=== PATIENT | female | born 1945 | race Caucasian/White ===

== ENCOUNTER 2018-02-06 13:31 | Outpatient (REF) | payer MEDICARE, SELFPAY ==
[2018-02-06 21:52] LABS: Anion Gap 11.5 mmol/L (3-11); BUN 19 mg/dL (7-18); CO2 28.5 mmol/L (21.0-32.0); Calcium 9.2 mg/dL (8.5-10.1); Chloride 100 mmol/L (98-107); Cholesterol 223 mg/dL (50-200); Glucose 88 mg/dL (70-100); HDL Cholesterol 90 mg/dL (40-60); LDL CHOLESTEROL 117 mg/dL (<100); Potassium 3.8 mmol/L (3.5-5.1); Sodium 140 mmol/L (136-145); Triglyceride 54 mg/dL (30-150); Vitamin B12 > 1000 pg/mL (193-986)
== END 2018-02-06 13:51 ==
LOC: NCHCN 13:31
PROVIDERS: PCP Nurse Practitioner Family; Visit Provider Nurse Practitioner Family
DX: R53.83 Other fatigue (principal); E78.5 Hyperlipidemia, unspecified; Z80.3 Family history of malignant neoplasm of breast; I10 Essential (primary) hypertension; J30.2 Other seasonal allergic rhinitis; E66.9 Obesity, unspecified
CPT/HCPCS: 80048; 80061; 83721; 82607; 84443

== ENCOUNTER 2018-05-01 00:47 | Outpatient (CLI) | payer MEDICARE, SELFPAY ==
--- NOTE | 2018-05-01 10:00 | DI.MAMMO_ITS ---
SYMPTOM/DIAGNOSIS: SCREENING, Z12.31, FAM HX BREAST CA Z80.3, PREVENTATIVE CARE Z00.00 MAMMOGRAMS: Mammograms were interpreted according to the usual protocol including computer analysis with CAD system, tomosynthesis and C view imaging. Comparison with the prior examinations. Breast density category A. No masses or microcalcifications are seen. There is nothing to suggest malignancy. IMPRESSION: Negative mammogram. Category 1 - A. Routine screening is recommended. SA ASSESSMENT OF FINDINGS: Negative. Category 1. Patient will receive a letter notifying them of these results. BI-RAD category A. The breasts are almost entirely fatty.
== END 2018-05-01 01:07 ==
PROVIDERS: PCP Nurse Practitioner Family; Visit Provider Nurse Practitioner Family
DX: Z12.31 Encounter for screening mammogram for malignant neoplasm of breast (principal); Z80.3 Family history of malignant neoplasm of breast
CPT/HCPCS: 77063; 77067

== ENCOUNTER 2018-05-08 13:58 | Outpatient (CLI) | payer MEDICARE, SELFPAY ==
--- NOTE | 2018-05-08 13:38 | DI.RAD_ITS ---
SYMPTOM/DIAGNOSIS: F/U RT TKA RIGHT KNEE: Comparison is made with 20 May 2017 There has been no change in the appearance of the total knee prosthesis or surrounding bone.
== END 2018-05-08 14:18 ==
PROVIDERS: PCP Nurse Practitioner Family; Referring Provider Nurse Practitioner Family; Visit Provider Student in an Organized Health Care Education/Training Program
DX: Z96.651 Presence of right artificial knee joint (principal); Z47.1 Aftercare following joint replacement surgery; M17.11 Unilateral primary osteoarthritis, right knee
CPT/HCPCS: 99213; 73560

== ENCOUNTER 2018-08-15 10:16 | Outpatient (REF) | payer MEDICARE, SELFPAY ==
[2018-08-15 13:38] LABS: Cholesterol 280 mg/dL (50-200); HDL Cholesterol 92 mg/dL (40-60); LDL CHOLESTEROL 166 mg/dL (<100); Triglyceride 67 mg/dL (30-150)
[2018-08-16 10:19] LABS: Hepatitis C Ab w Rflx HCV PCR Negative (NEGAT)
== END 2018-08-15 10:36 ==
LOC: NCHCN 10:16
PROVIDERS: PCP Nurse Practitioner Family; Visit Provider Nurse Practitioner Family
DX: E78.5 Hyperlipidemia, unspecified (principal); R53.83 Other fatigue; I10 Essential (primary) hypertension; E66.3 Overweight; Z11.59 Encounter for screening for other viral diseases
CPT/HCPCS: 80061; 83721; 86803

== ENCOUNTER 2019-02-13 11:26 | Outpatient (REF) | payer MEDICARE, SELFPAY ==
[2019-02-13 21:48] LABS: ALT 30 U/L (14-59); AST 14 U/L (15-37); Albumin 3.9 g/dL (3.4-5.0); Alkaline Phosphatase 89 U/L (46-116); Anion Gap 10.1 mmol/L (3-11); BUN 18 mg/dL (7-18); Bilirubin, Total 0.4 mg/dL (0.2-1.0); CO2 27.9 mmol/L (21.0-32.0); CREATININE 0.79 mg/dL (0.55-1.02); Calcium 9.7 mg/dL (8.5-10.1); Calculated LDL 176 mg/dL; Chloride 103 mmol/L (98-107); Cholesterol 280 mg/dL (50-200); Glucose 87 mg/dL (70-100); HDL Cholesterol 92 mg/dL (40-60); Sodium 141 mmol/L (136-145); Total Protein 7.5 g/dL (6.4-8.2); Triglyceride 61 mg/dL (30-150)
== END 2019-02-13 11:46 ==
LOC: NCHCN 11:26
PROVIDERS: PCP Nurse Practitioner Family; Visit Provider Nurse Practitioner Family
DX: I10 Essential (primary) hypertension (principal); E78.5 Hyperlipidemia, unspecified; R53.83 Other fatigue; E66.9 Obesity, unspecified
CPT/HCPCS: 80053; 80061

== ENCOUNTER 2019-05-08 01:12 | Outpatient (CLI) | payer MEDICARE, SELFPAY ==
--- NOTE | 2019-05-08 08:42 | DI.MAMMO_ITS ---
EXAM: MAMMO SCREENING CLINICAL HISTORY: SCREENING, Z12.31, FAMILY H/O BREAST CA, Z80.3 TECHNIQUE: Mammograms were interpreted according to the usual protocol including computer analysis w [employer] CAD system, tomosynthesis and C-view imaging. COMPARISON: [id number] FINDINGS: The breasts are composed of almost entirely fatty tissue, breast density category A. There are no pedraza spicious masses or suspicious microcalcifications. There has been no significant interval change when compared with the prior examinations. IMPRESSION: Category 1, breast density category A. BI-RADS Cat 1 - Negative Breast Density - Category A - Almost entirely fatty
== END 2019-05-08 01:32 ==
PROVIDERS: PCP Nurse Practitioner Family; Visit Provider Nurse Practitioner Family
DX: Z12.31 Encounter for screening mammogram for malignant neoplasm of breast (principal); Z80.3 Family history of malignant neoplasm of breast
CPT/HCPCS: 77063; 77067

== ENCOUNTER 2019-07-02 14:47 | Outpatient (CLI) | payer MEDICARE, SELFPAY ==
--- NOTE | 2019-07-02 13:49 | DI.RAD_ITS ---
EXAM: XR STANDING ALIGNMENT INDICATION: left knee pain. COMPARISON: BONE LENGTH from 05/20/2017 TECHNIQUE: 2D digital imaging was performed. FINDINGS: The patient has a right total knee replacement. In the left knee there is moderate narrowing of the medial femoral tibial joint space. There is periarticular spurring seen medially and laterally in th e left knee. The right lower extremity measures 83.3 cm. The left lower extremity measures 0.4 cm.
--- NOTE | 2019-07-02 13:49 | DI.RAD_ITS ---
EXAM: XR KNEE LT 2V AP,LAT INDICATION: left knee pain. COMPARISON: XR knee RT 2V AP,lat from 05/08/2018 TECHNIQUE: 2D digital imaging was performed. FINDINGS: There are mild degenerative changes of the left knee predominantly involving the patellofemoral joint . The bones are normally mineralized and intact. The soft tissues are unremarkable. IMPRESSION: Mild degenerative changes of the left knee.
== END 2019-07-02 15:07 ==
PROVIDERS: PCP Nurse Practitioner Family; Referring Provider Nurse Practitioner Family; Visit Provider Student in an Organized Health Care Education/Training Program
DX: M25.562 Pain in left knee (principal); M17.12 Unilateral primary osteoarthritis, left knee; Z96.651 Presence of right artificial knee joint; M21.70 Unequal limb length (acquired), unspecified site
CPT/HCPCS: 99213; 73560; 77073

== ENCOUNTER 2019-08-13 13:29 | Outpatient (CLI) | payer MEDICARE, SELFPAY ==
[2019-08-13 13:55] LABS: HCT 41.7 % (36.0-46.0); HGB 13.4 g/dL (12.0-15.5); Mean Corp. HGB Concentration 32.1 g/dL (32.0-36.0); Mean Corpuscular Hemoglobin 30.5 pg (27.0-33.0); Mean Platelet Volume 10.6 fL (8.0-11.0); Platelet Count 305 x1000/uL (130-400); RBC 4.39 m/cumm (4.00-5.20); RBC Distribution Width 14.4 % (11.7-14.6); White Blood Cell Count 6.09 k/cumm (4.4-10.8)
[2019-08-13 14:56] LABS: Anion Gap 10.1 mmol/L (3-11); BUN 19 mg/dL (7-18); CO2 29.9 mmol/L (21.0-32.0); CREATININE 0.84 mg/dL (0.55-1.02); Calcium 9.3 mg/dL (8.5-10.1); Chloride 105 mmol/L (98-107); Glucose 92 mg/dL (74-106); Potassium 3.6 mmol/L (3.5-5.1); Sodium 145 mmol/L (136-145)
== END 2019-08-13 13:49 ==
PROVIDERS: PCP Nurse Practitioner Family; Visit Provider Student in an Organized Health Care Education/Training Program
DX: M25.562 Pain in left knee (principal); M17.12 Unilateral primary osteoarthritis, left knee; Z01.818 Encounter for other preprocedural examination; Z01.812 Encounter for preprocedural laboratory examination
CPT/HCPCS: 36415; 80048; 85027

== ENCOUNTER 2019-08-14 06:02 | Observation (INO) | payer MEDICARE, SELFPAY ==
--- NOTE | 2019-08-13 17:45 | PDOC.ANES ---
Date of service: 08/13/19 Time of Service: 17:46 Anesthesia Note Report Anesthesia Note: Called to speak with Joycelyn in regards to possibly rescheduling her elective surgery. I explained that she is in a higher risk group if she was to contract BRET-CoV-2/COVID 19. I explained that it has been recommended for higher risk groups to remain at home to minimize exposure to the virus. She understands the risk and would like to proceed as scheduled understanding that her overall risk of exposure is unknown.
[2019-08-14] VITALS (12 sets, daily range): BP systolic 87–129; BP diastolic 42–81; PULSE 60–85; RESP 10–22; TEMP 36–36.7; O2SAT 97–100
[2019-08-14] MEDS: Celecoxib 200 MG CAP 400 MG PO (06:53)
[2019-08-14] MEDS: Lactated Ringers 1,000 ML 80 ML IV ×2 (06:53→11:47)
[2019-08-14] MEDS: Gabapentin 300 MG CAP PO (06:54)
[2019-08-14] MEDS: Acetaminophen 500 MG TAB 1000 MG PO ×2 (06:58→13:42)
[2019-08-14] MEDS: ceFAZolin 2 GM/50 ML BAG IVPB (08:12)
[2019-08-14] MEDS: Normal Saline 20 ML VIAL (08:48)
[2019-08-14] MEDS: Ketorolac 30 MG/ML VIAL (08:48)
[2019-08-14] MEDS: Bupivacaine 0.5% Pres-Free 30 ML VIAL (08:48)
[2019-08-14] MEDS: Bupivacaine 0.25% Pres-Free 30 ML VIAL (08:48)
[2019-08-14] MEDS: ceFAZolin 1 GM/50 ML BAG IVPB (13:42)
--- NOTE | 2019-08-14 13:45 | IN_ITS ---
Date of service: 08/14/19 Time of Service: 13:45 PT Notes Visit Reasons: LEFT KNEE DJD Physical Therapy Inpatient Initial Evaluation Date: 08/14/2019 Jaret Referring Doctor: PT Orders: PT CONSULT: Status post Ortho surgery. Status post left TKA. Like ly same-day discharge. Precautions: Fall. Standard. WBAT on the left LE. Patient Profile/Admitting Diagnosis: Patient is a 73-year-old female with primary osteoarthritis of left knee status post left total knee arthroplasty on postoperative day 0. PMHX: Medical History HTN (hypertension) (Chronic) Primary osteoarthritis of left knee (Acute) Surgical History History of total right knee replacement (TKR) (Inactive) 05/03/2017 Hx of colonoscopy (Chronic) Social History/Home Situation: Patient lives with Silviano in a private home in [place] with a ramp to enter the house. 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 They also have another person who boards at their house and is able to help with provision of care for patient's for meals and medical certification specialist. Patient is independent with all mobility ADL performance using no assistive ambulatory device prior to surgery. Equipment Owned/DME: 4 wheeled walker, front wheeled walker Subjective: Patient denies pain on the left knee at rest but states that she can feel her left knee with ambulation activity. She hopes to go home today if medically cleared to do so. She denies any headache, chest pain, and dizziness throughout mobility performance. She states that she has been providing caregiving duties for the past 3 years for her who has been handicapped. Objective: General Observation: Patient resting in bed. Infante catheter in place. TEDS on the right leg. IV in the left UE. Mental Status: Alert and oriented x4 Pain: 0/10 ROM: Right Upper Extremity: Shoulder Flexion WFL. Shoulder abduction WFL. Elbow flexion WFL. Wrist flexion WFL. Opening and closing of hand WFL. Left Upper Extremity: Shoulder Flexion WFL. Shoulder abduction WFL. Elbow flexion WFL. Wrist flexion WFL. Opening and closing of hand WFL. Right Lower Extremity: Hip flexion WFL. Hip abduction WFL. Knee flexion WFL. Ankle dorsiflexion WFL. Ankle plantarflexion WFL. Left Lower Extremity: Hip flexion WFL. Hip abduction WFL. Knee flexion -18 to 15 degrees. Knee extension -18 degrees. Ankle dorsiflexion WFL. Ankle plantarflexion WFL. Strength: Right Upper Extremity: Shoulder flexors 5/5. Shoulder abductors 5/5. Elbow flexors 5/5. Elbow extensors 5/5. Recreation Engineer strong. Left Upper Extremity: Shoulder flexors 5/5. Shoulder abductors 5/5. Elbow flexors 5/5. Elbow extensors 5/5. Recreation Engineer strong. Right Lower Extremity: Hip flexors 5/5. Hip abductors 5/5. Knee flexors 5/5. Knee extensors 5/5. Ankle dorsiflexors 5/5. Ankle plantarflexors 5/5. Left Lower Extremity: Hip flexors 5/5. Hip abductors 5/5. Knee flexors 3-/5. Knee extensors 3-/5. Ankle dorsiflexors 5/5. Ankle plantarflexors 5/5. Sensation: Intact as to pain and pressure on bilateral lower extremities. Bed Mobility/Transfers: Rolling independent Supine to sit independent Sit to supine independent Sit to stand supervision Stand to sit supervision Bed to chair SBA Chair to bed SBA Gait: Patient tolerated level surface ambulation of 300 feet using the front wheeled walker with SBA and IV pole management of PT and wheelchair follow of nurse Sinha. Patient did not complain of increased pain on the left knee. Reciprocal step through gait pattern. Balance: Static Sitting: Normal Dynamic Sitting: Normal Static Standing: Good Dynamic Standing: Fair Special Tests: Mobility Limitations Standardized Measure [facility] 6 clicks Basic Mobility Inpatient Short Form: Raw Score: 23 CMS Score: 11% deficit Informed Consent/Education: Patient instructed in purpose of PT consult and plan of care. Assessment: Impaired mobility performance requiring use of assistive ambulatory device, limited range of motion on the left knee, and impairment in balance resulting from postoperative status. Patient is a 73-year-old female with primary osteoarthritis of left knee status post left total knee arthroplasty on postoperative day 0. Patient presents with clinical signs and symptoms consistent with current/admitting diagnoses that have resulted to mobility limitations, gait instability, generalized weakness, and impairment of motor control as demonstrated by the following impairment level findings: 1. Decreased strength to left knee major muscle groups 2. Impaired standing balance 3. Impaired activity tolerance 4. Limitation of joint range of motion in left knee Impairments are contributing to the following functional limitations: 1. Inability to safely ambulate without assistive device and physical assistance 2. Increase completion time for mobility ADL performance 3. Increased fall risk Patient is assessed as a 68979 moderate complexity based on the following: History: 73-year-old female with impairment level findings, functional limitations, and [place] AM PAC deficit score of 11% Examination: Demonstrable impairment in strength, balance, and range of motion with underlying impairments and functional limitations as documented above Presentation: Stable Decision Makin moderate complexity Goals: N/A. Patient is evaluation only. Plan of Care/Treatment Plan: N/A. Patient is evaluation only. DISCHARGE RECOMMENDATIONS: May benefit from skilled physical therapy services according to orthopedic surgeon's timeline recommendations. Patient will be educated and trained on home exercise program per TKA exercise protocol in preparation for outpatient physical therapy services. TREATMENT CODE/TIME: 06879 ? 32' beginning at 13:45 PM. Thank you very much for this referral. Andreia Gillespie PT, DPT, CLT [facility] [place], [place]
--- NOTE | 2019-08-14 14:11 | ROE_ITS ---
Date of service: 08/14/19 Time of Service: 10:11 Operative Note Operative Note DATE OF PROCEDURE: 08/14/19 PRE-OP DIAGNOSIS: Left Knee Osteoarthritis POST-OP DIAGNOSIS: same PROCEDURE: Left Total Knee Replacement SURGEON: Chinedu Raygoza SLIVER MACHINE OPERATOR: Valeria Rice ANESTHESIA: regional and spinal ESTIMATED BLOOD LOSS: 150 PATHOLOGY: none sent TOURNIQUET TIME: 0 COMPLICATIONS: None Patient was transported to: PACU Patient's condition: stable Implants: 1. Depuy Attune Posterior Stabilized Femoral Component, Size 5 narrow 2. Depuy Attune Fixed Platform Tibial Component, Size 4 3. Depuy Attune 5x6 Fixed, Stabilized Poly 4. Depuy Attune Patellar Component, Size 35mm Indications: I have seen Joycelyn in clinic for symptoms of left knee arthritis, confirmed with radiographic findings. She has exhausted nonoperative methods and was having significant limitations in daily function and desired better function and less pain. I discussed the technical details of a knee replacement. I explained the risks of the procedure to include, but not limited to, bleeding, infection, pain, stiffness, fracture, damage to nerves and vessels, damage to muscles and tendons, loosening, need for repeat procedure, blood clot and cardiopulmonary demise. Despite these risks, Joycelyn elected to proceed. Findings: There was significant signs of arthritis throughout the knee. Procedure Description: Joycelyn was greeted in the preoperative holding area where the correct side was identified and marked. The consent was reviewed with the patient and signed. The history and physical was updated. All questions were answered. Preoperative mediacations were administered: Acetaminophen 1000mg, Celebrex 400mg, and Gabapentin 300mg. An adductor canal block was then administered by the anesthesia team in the PACU. Joycelyn was taken back to the operating room. A spinal anesthestic was then administered. The patient was placed into the supine position on the operating room table. A nonsterile tourniquet was placed high onto the leg but only used for cementing. Posts were placed for positioning during the procedure. All bony prominences were well padded. Prophylactic antibiotics in the form of Cefazolin were administered. 1g of Tranxemic Acid was given intravenously within 30 minutes of incision. The left leg was then prepped with Chloraprep and draped in a standard fashion with impervious stockinette and extremity drape. A second prep with Chloraprep was performed prior to placing Ioband. A timeout to confirm correct identity, side and site, procedure, allergies, anesthesia, and medical concerns was performed. With the knee in some flexion, a midline incision was made overlying the knee. Full thickness skin flaps were raised once the extensor mechanism was encountere d. These were raised medially and laterally. Any bleeding was controlled with electrocautery. Once the extensor mechanism was fully exposed, a medial parapatellar arthrotomy was performed in a flexed position. All bleeding from the arthrotomy and the geniculate arteries was coagulated. A medial subperiosteal peel was performed with electrocautery to the midcoronal plane. The fat pad was removed while keeping the patellar tendon protected. The anterior distal femur synovium was removed for later visualization. The ACL and PCL were resected and the anterior horn of the lateral meniscus was transected. The knee was then flexed with the patella everted. Large osteophytes from the femur were removed. Using a step drill, and based on preoperative templating, the femoral canal was entered. This was done with a step drill without any difficulty. The intramedullary distal femoral cut guide was inserted, set to a 5 degree valgus cut and 9mm cut thickness. The distal femoral cut guide was then held in position and pinned. With the soft tissues protected, the distal cut was performed. This was passed over a few times to ensure a planar cut. I then turned attention to the tibia. The extramedullary guide was placed onto the leg. The distal aspect was slid medial to adjust for position of center of ankle and stay in line with shaft of the tibia. Approximately 3-5 degrees of posterior slope was kept in the proximal cutting guide. The center of the guide was aligned with the PCL. The stylus was used to assess cut thickness. The medial side, most involved side, w as set for a 3mm cut. This was then held in position and pinned into place with 2 additional pins and a cross pin for stability. The medial and lateral collateral ligaments were protected and the cut was performed. With this completed, it was assessed and noted to be of appropriate dimensions. The guide was removed. A spacer block was inserted and the knee was brought into extension. The 6mm spacer block provided full extension, without hyperextension and with stability of both the medial and lateral collateral ligaments was assessed. The pins from the femur and the tibia were then removed. The distal femur was then sized. The anterior stylus was placed onto the lateral ridge of the anterior femur. This indicated a size 5 femur. The external rotation of the guide was adjusted to 3 degrees to match the epicondylar axis, perpendicular to [place]?s line. The 4-in-1 cutting guide was the placed. The posterior medial femur cut was evaluated and appeared of good thickness. The spacer block was inserted underneath the cutting guide and stability was confirmed in 90 degrees of flexion. An hannah wing was used to confirm appropriate position of the anterior cut to avoid notching. This cutting guide was ensured to be flush on the cut surface and then pinned into place with headed pins. While protecting the soft tissues, quad tendon, and collateral ligaments, the anterior and posterior cuts were performed with a saw. The central two pins were removed and the posterior and anterior chamfers were cut next. The notch-cutting guide was placed. This was pinned to lateralize the femoral component as much as possible while keeping it flush on the cut surface. This was then pinned into position. A reciprocating saw was used to make the notch cut. A rasp smoothed the cut surfaces. A trial posterior stabilized femoral component was then inserted, impacted down to the cut surfaces, and the lug holes were drilled. A provisional trial tibial component was placed and the knee was brought through range of motion. There was noted to be excellent extension and flexion. There was no significant instability. The patella was tracking without thumbs. The tibial cut surface was fully exposed. The medial and lateral menisci were removed. The tibia was then sized as a 4. The tibia had been previously marked during trialing to correspond to the center of the tibial component to help with rotation. The trial was aligned to this fede, approximately rotated to the medial 1/3rd of the tibial tubercle. The trial was pinned into place. The tibia was prepared with a reamer and a keel punch. The knee was then brought into extension and the patella was measured as 25mm. Using the patellar clamp and cut guide, this was resected to a flat surface with at least 13mm of thickness remaining. The size 35 patella fit the best. This was oriented and then clamped into position. The lugs were drilled. The trial components were removed. The final components, except for the polyethylene were opened on the back table. The periosteal and capsular tissues, especially posteriorly, around the knee were then systematically injected with a periarticular cocktail consisting of 50cc 0.25% Marcaine, 30mg Ketorolac, 20cc of Exparal and 50cc of injectable saline. The tourniquet was then inflated to 275mmHg. The knee was thoroughly irrigated with a pulse lavage and dried. On the back table, with the implants opened, the cement was mixed. 2 batches of antibiotic laden cement were prepared with vacuum assistance. After the cement was ready it was placed on to the back side of the tibial component. A small amount was placed onto the posterior flange of the femur. Cement was manual pressurized and impregnated into the cut surface of the tibia. The tibial component was then inserted into the cut surface and impacted into position. Excess cement was removed and the component was reimpacted. Again, excess cement was removed and our attention was then turned to the femur. The femoral cut surface was once again dried and cement was manually impacted into the cut surface. The femoral component was lined with the lug holes and impacted. Ex cess cement was removed. It was ensured to be down against the cut surface. The trial polyethylene was then inserted and the leg was brought out into full extension for the duration of the cement curing process, approximately 15min. Cement was lastly manually impacted into the cut surface of the patella and the patellar button was clamped into position and held. During this process attention was turned to the gutters of the knee and for all interfaces for any excess cement. While the cement was hardening, the knee was irrigated with Irrisept chlorhexadine solution. It was allowed to sit in the knee for 3 minutes. After the cement had finally cured, approximately 15min, the clamp was removed from the patella and the knee was taken through range of motion. A size 6mm polyethylene component provided the best range of motion and stability with less than 2mm gapping with medial and lateral stress and full extension without significant hyperextension. The patella was tracking with a no-thumbs technique. The trial poly was removed and once again the knee was checked for any loose, excess, or errant cement. The poly component was then inserted and impacted into position after cleaning and drying the tibial tray. The capsule was then reapproximated with a No. 1 Vicryl at multiple locations. The capsule was finally closed with a No. 2 Stratafix, barbed suture. The tourniquet was then released and the arthrotomy appeared watertight without significant bleeding. The second dosing of 1g TXA was started. Deep tissues were then reapproximated with 0 Vicryl and 2-0 Vicryl. The skin was closed with a running 3-0 Monocryl in a subcuticular fashion. This was reinforced with skin glue. A Mepilex silver dressing was applied along with a [id number] DELTA wrap. A CryoCuff was applied. Joycelyn was transferred to the hospital bed without difficulty an suffering no apparent complication. Joycelyn has a good prognosis. Physical therapy will start today and without restrictions, weight-bearing as tolerated. Aspirin 81mg BID will be used for DVT prophylaxis.
--- NOTE | 2019-08-14 14:52 | DSE_ITS ---
Date of service: 08/14/19 Time of Service: 14:52 DS: Diagnosis Discharge Diagnosis (1) Primary osteoarthritis of left knee: Status: Acute Discharge Plan Disposition Patient Disposition: HOME Condition: Good Discharge Details Reason For Visit: LEFT KNEE DJD Admit Date/Time: 08/14/19 06:02 Admit Provider: Chinedu Raygoza Attending Provider: Chinedu Raygoza [facility] Hospital Course: Patient was admitted to the medical/surgical floor following the procedure. It was tolerated well without any notable medical, surgical, or anesthetic complications. Mobilization began postoperatively. The mesa catheter was removed and voiding spontaneously. Vitals were stable. Physical therapy worked with the patient and was cleared for discharge home. No acute medical issues. Home Meds and New Rx's Prescriptions: New celecoxib 200 mg capsule 200 mg PO BID PRN (Reason: pain) Qty: 60 RF: 1 aspirin 81 mg tablet,delayed release (DR/EC) 81 mg PO BID Qty: 60 RF: 0 acetaminophen 500 mg tablet 1,000 mg PO Q8H PRN (Reason: pain) Qty: 90 RF: 3 pantoprazole 40 mg tablet,delayed release (DR/EC) 40 mg PO DAILY Qty: 30 RF: 0 gabapentin 300 mg capsule 300 mg PO QHS Qty: 7 RF: 0 oxycodone 5 mg tablet 2.5 - 5 mg PO Q4H Qty: 18 RF: 0 Continued lisinopril 20 MG tablet 20 mg PO DAILY RF: 0 hydrochlorothiazide 25 MG tablet 25 mg PO DAILY RF: 0 Daily Multiple 1 EACH tablet 1 tab-cap PO DAILY RF: 0 acetaminophen [Mapap Extra Strength] 500 MG tablet 1,000 mg PO TID Qty: 120 RF: 3 Discharge Instructions Additional Instructions: Dr. Raygoza?s Total Knee Discharge Instructions Activity: The most important activity is to walk. You should try to take short walks a few times a day. It is important that when resting you work on keeping the knee straight. Avoid putting a pillow behind the knee as this will encourage flexion. Work on range of motion exercises as provided by Physical Therapy. - Home Health Physical Therapy has been prescribed. - You should wear the LUCI hose on both legs for 2 weeks. Dressing: The DELTA wrap should be removed on post-op day #2, 08/16/19. Keep the underlying surgical dressing in place for at least one week. After the first week it may be removed and replace with light gauze and tape or nothing. It may get wet after 3 days but avoid soaking the dressing. If it gets wet, just lightly pat dry. Most people cover the dressing with some cling wrap prior to showering. Medications: - You should take Tylenol (1000mg every 8 hours) and anti-inflammatory Celebrex (200mg twice a day) as your primary pain control medications. If the Celebrex is not covered or is too costly, you can take Ibuprofen 600mg every 8 hours as needed. - You have been prescribed a stronger pain medication Oxycodone for breakthrough pain, take as needed as prescribed (2 - tab). - You have also been prescribed a stomach acid reduction agent Pantoprozole to help reduce stomach acid and reflux. - Gabapentin has been prescribed to help with nighttime pain and nerve pain. - You will be taking Aspirin 81mg twice a day for DVT prevention unless instructed otherwise. - If you have constipation you should take Colace or Miralax (both [id number]). It takes most people 3-4 days to have a bowel movement. Follow-up: 2 weeks 1. Encounter Date and Reason I certify that JOYCELYN DSOUZA was seen by Chinedu Raygoza MD on 08/14/19 and that I had a [id number]-evin encounter with this patient that meets the physician face to face encounter requirements. 2. Clinical Findings Supporting Skilled Need and Homebound Status I certify that home health services are medically necessary, include either intermittent retirement and/or physical/speech therapy, and that this patient is homebound in that absences from the home require considerable and taxing effort and are infrequent or of short duration, or are attributable to the need to receive medical care. [X] (a) Attached documentation from encounter provides clinical findings supporting skilled need and homebound status (including what assistance patient requires to leave the home). The encounter with the patient was in whole, or in part, for the following medical condition, which is the primary reason for home health care: LEFT KNEE DJD Long Term: Physical Therapy:Joycelyn would benefit from physical therapy to address weakness, stiffness following left total knee arthroplasty. She has significant strength and motion deficits. Focus should be placed on normalizing gait and addressing lack of extension. Speech Therapy: Homebound: Joycelyn is homebound and is unable to leave her home due to her weakness, stiffness, and alterations in gait. She cannot leave without significant assistance. 3. Certification and Authentication I certify that I composed the above information based on my clinical judgement relating to this patient's medical condition and, if applicable, clinical findings communicated to me by the NPP or inpatient physician who performed the Home Health Referral. All further orders will be obtained through Dr. Chinedu Raygoza Referrals: Chinedu Raygoza MD [ [facility]YS[facility]IAN] - Activity:: Activity as Tolerated Equipment/Supplies:: No Equipment Needed Diet:: As Tolerated Discharge Orders Discharge Orders: Discharge Order (Routine); Ordered 08/14/19 Ordered By: Chinedu Raygoza DS: Summary Status at Discharge Functional status at discharge: uses cane/walker Overall status at discharge: patient is progressing back to baseline Mental Status: mental status grossly normal Speech and Movement: speech and movement normal Mood: congruent mood Affect: normal affect Exam Psych Mental Status: mental status grossly normal Speech and Movement: speech and movement normal Mood: congruent mood Affect: normal affect DS: Data Vitals/I&O Vitals and I&O: Vital Signs Temperature 36.2 C L 08/14/19 13:07 Temperature Source Temporal Artery Scan 08/14/19 13:07 Pulse 66 08/14/19 13:07 Pulse Rhythm Regular 08/14/19 11:15 Respiratory Rate 18 08/14/19 13:07 Respiratory Effort Non-Labored 08/14/19 11:15 Respiratory Depth Normal 08/14/19 11:15 Respiratory Pattern Normal 08/14/19 11:15 Blood Pressure 120/69 08/14/19 13:07 Pulse Oximetry 99 08/14/19 13:07 Respiratory End-tidal CO2 36 08/14/19 10:40 Oxygen Delivery Method Room Air 08/14/19 13:07 Oxygen Flow Rate 0 08/14/19 13:07 Pain Level 0 08/14/19 13:42 Intake & Output 08/13/19 08/14/19 08/14/19 23:59 11:59 23:59 Intake Total 1170 / 1660 490 / 1660 Output Total 250 / 850 600 / 850 Balance 920 / 810 -110 / 810 Weight 73.6 kg Intake: IV 1170 / 1170 Oral 490 / 490 Output: Urine 100 / 700 600 / 700 Estimated Blood Loss 150 / 150 Other: Urine Color Yellow Yellow Urine Appearance Clear Clear Emesis Description None PFSH Medical History HTN (hypertension) (Chronic) Primary osteoarthritis of left knee (Acute) Surgical History History of total right knee replacement (TKR) (Inactive) 05/03/2017 Hx of colonoscopy (Chronic) Social History Smoking/Tobacco Use Status: Never Drug use: Never Current gender identity: female
--- NOTE | 2019-08-14 17:11 | NUR.NOTE ---
Nursing Note: 1057- pt transferred from PACU to med surg floor via ortho bed. pt has LR@80 running and VSS.
== END 2019-08-14 16:53 | disposition home or self-care (01) ==
LOC: MS 12:09 → PDS 12:16
PROVIDERS: Admitting Provider Student in an Organized Health Care Education/Training Program; PCP Nurse Practitioner Family; Visit Provider Student in an Organized Health Care Education/Training Program
PROC: 0SRD0J9 Replacement of Left Knee Joint with Synthetic Substitute, Cemented, Open Approach (ICD-10-PCS; CPT 27447; principal; 2019-08-14 08:00)
DX: M17.12 Unilateral primary osteoarthritis, left knee (principal); M25.552 Pain in left hip; Z96.652 Presence of left artificial knee joint; I10 Essential (primary) hypertension
CPT/HCPCS: 27447; C1776; 76942; 97162; NC; G0378; J0690; J1885; J2001; J2250; J3010

== ENCOUNTER 2019-08-30 09:43 | Outpatient (CLI) | payer MEDICARE, SELFPAY ==
--- NOTE | 2019-08-30 09:30 | DI.RAD_ITS ---
EXAM: XR STANDING ALIGNMENT CLINICAL HISTORY: 1ST POST OP TECHNIQUE: COMPARISON: XR STANDING ALIGNMENT from 07/02/2019 FINDINGS: AP standing alignment views were obtained. There are bilateral total knee joint replacements in posi tion. There are mild degenerative changes of both hips with slight narrowing of the cartilaginous joint spa von superiorly and mild marginal osteophyte formation of the acetabula. IMPRESSION:
--- NOTE | 2019-08-30 09:30 | DI.RAD_ITS ---
EXAM: XR KNEE LT 1V CLINICAL HISTORY: 1ST POST OP TECHNIQUE: COMPARISON: XR KNEE LT 2V AP,LAT from 07/02/2019 FINDINGS: Single lateral view was obtained and shows total knee joint replacement in position. The components appear well seated. No other significant bony abnormality seen. IMPRESSION:
== END 2019-08-30 10:03 ==
PROVIDERS: PCP Nurse Practitioner Family; Visit Provider Student in an Organized Health Care Education/Training Program
DX: Z96.653 Presence of artificial knee joint, bilateral (principal); Z47.1 Aftercare following joint replacement surgery; M16.0 Bilateral primary osteoarthritis of hip; I10 Essential (primary) hypertension
CPT/HCPCS: 73560; 77073

== ENCOUNTER → 2019-09-27 09:14 | Outpatient (BNVA) | payer MEDICARE, SELFPAY | PROVIDERS: PCP Nurse Practitioner Family; Referring Provider Nurse Practitioner Family; Visit Provider Student in an Organized Health Care Education/Training Program | DX: Z96.652 Presence of left artificial knee joint (principal); Z47.1 Aftercare following joint replacement surgery; I10 Essential (primary) hypertension ==

== ENCOUNTER 2020-04-21 09:48 | Outpatient (REF) | payer MEDICARE, SELFPAY ==
[2020-04-21 21:43] LABS: ALT 24 U/L (14-59); AST 12 U/L (15-37); Albumin 3.8 g/dL (3.4-5.0); Alkaline Phosphatase 85 U/L (46-116); Anion Gap 7.3 mmol/L (3-11); BUN 18 mg/dL (7-18); Bilirubin, Total 0.3 mg/dL (0.2-1.0); CO2 31.7 mmol/L (21.0-32.0); CREATININE 0.87 mg/dL (0.55-1.02); Calcium 9.2 mg/dL (8.5-10.1); Calculated LDL 166 mg/dL (<100); Chloride 104 mmol/L (98-107); Cholesterol 268 mg/dL (<200); Glucose 99 mg/dL (74-106); HDL Cholesterol 91 mg/dL (40-60); Potassium 3.9 mmol/L (3.5-5.1); Sodium 143 mmol/L (136-145); Total Protein 7.2 g/dL (6.4-8.2); Triglyceride 58 mg/dL (<150)
== END 2020-04-21 10:08 ==
LOC: NCHCN 09:48
PROVIDERS: PCP Nurse Practitioner Family; Visit Provider Nurse Practitioner Family
DX: I10 Essential (primary) hypertension (principal); E78.5 Hyperlipidemia, unspecified
CPT/HCPCS: 80053; 80061

== ENCOUNTER 2020-05-19 01:14 | Outpatient (CLI) | payer MEDICARE, SELFPAY ==
--- NOTE | 2020-05-19 | DI.MAMMO_ITS ---
EXAM: MG MAMMO SCREENING CLINICAL HISTORY: SCREENING,FAMILY H/O BREAST CA,Z12.31,Z80.3 TECHNIQUE: Bilateral full field digital CC and MLO mammographic images were obtained with 3D tomosyn thesis and utilizing computer aided detection (CAD). COMPARISON: Available for comparison. FINDINGS: Masses/Architectural Distortion: None seen. There has been continued decrease in size of the nodule i n the central right breast since the prior examinations. Microcalcifications: No suspicious pleomorphic-type are seen. Skin Thickening/Nipple Retraction: None. IMPRESSION: 1. No significant interval change with no specific features of malignancy noted. 2. Unless there is more urgent need, screening mammography is recommended, as per [place] guidelines. BI-RADS Category 1 - Negative Breast Density - Category A - Almost entirely fatty Breast density category C or D implies that the patient has dense breast tissue. Dense breast tissue is very common and is not abnormal but dense breast tissue can make it harder to find cancer on a ma mmogram. Also, dense breast tissue may increase their breast cancer risk. This information about the result of the mammogram report was provided to the patient to raise their awareness. Use this report when you speak with the patient about their risks for breast cancer, which includes their family hist ory. At that time, you may recommend for more screening tests (Ultrasound or MRI) as they might be us eful based on their risk. A negative radiographic report should not delay biopsy if a dominant or clinically suspicious mass is present. Up to ten percent of cancers are not identified on mammography. A negative report may reinforce clinical impression. Adenosis and dense breasts may obscure an underlying neoplasm. False positive reports average 6 to 10%. Patient will receive a letter notifying them of these results.
== END 2020-05-19 01:34 ==
PROVIDERS: PCP Nurse Practitioner Family; Visit Provider Nurse Practitioner Family
DX: Z12.31 Encounter for screening mammogram for malignant neoplasm of breast (principal); Z80.3 Family history of malignant neoplasm of breast
CPT/HCPCS: 77063; 77067

== ENCOUNTER 2020-08-15 09:37 | Outpatient (CLI) | payer MEDICARE, SELFPAY ==
--- NOTE | 2020-08-15 08:45 | DI.RAD_ITS ---
EXAM: XR KNEE LT 2V AP,LAT INDICATION: annual f/u. COMPARISON: CR XR KNEE LT 2V AP,LAT from 07/02/2019 CR XR KNEE LT 2V AP,LAT from 07/02/2019 CR XR STANDING ALIGNMENT from 08/30/2019 TECHNIQUE: 2D digital imaging was performed. FINDINGS: There has been no change in the alignment of the total knee prosthesis or appearance of the surroundi ng bone. DATA REPOSITORY: RADIATION DOSE DELIVERED:
== END 2020-08-15 09:38 | disposition home or self-care (01) ==
LOC: DIORS 09:38
PROVIDERS: PCP Nurse Practitioner Family; Visit Provider Student in an Organized Health Care Education/Training Program
DX: Z96.652 Presence of left artificial knee joint (principal); Z47.1 Aftercare following joint replacement surgery
CPT/HCPCS: 99213; 73560

== ENCOUNTER 2021-06-09 10:37 | Outpatient (REF) | payer MEDICARE, SELFPAY ==
--- NOTE | 2021-06-09 09:47 | SKI_PTH ---
PATIENT: Joycelyn He LOC: [facility] U#:[id number] AGE/SX: 75/F ROOM: RE06/09/[address]: Licha Graham : 1945 BED: DIS: 06/09/2021 SPEC #: [id number] RECD: 06/09/21 16:53 STATUS: BHAVNA MARIEE #: [id number] JOSE: 06/09/21 09:[address]: Licha Graham DEPT: Surgical Specimen RECD BY: Francine Lu Tissues: 1 - SKIN BIOPSY(SHAVE/PUNCH) Procedures: SKIN LEVEL 4 Comments: [id number]
== END 2021-06-09 10:38 | disposition home or self-care (01) ==
LOC: NCHCN 10:37
PROVIDERS: PCP Nurse Practitioner Family; Visit Provider Nurse Practitioner Family
DX: L82.0 Inflamed seborrheic keratosis (principal)
CPT/HCPCS: 88305

== ENCOUNTER 2021-06-19 01:15 | Outpatient (CLI) | payer MEDICARE, SELFPAY ==
--- NOTE | 2021-06-19 10:30 | DI.DEXA_ITS ---
Exam(s) XR DEXA BONE DENSITY W/WO WAI EXAM: XR DEXA BONE DENSITY W/WO WAI CLINICAL HISTORY: OTHER SPECIFIED DISORDERS OF BONE DENSITY STRUCTURE, OTHER SITE, M85.88 TECHNIQUE: orangutrans C densitometer COMPARISON: 2011 FINDINGS: Lateral view of the thoracic and lumbar spine shows no evidence of compression fractures. Bone mineral density measurements of the lumbar spine correspond to a total T-score of -0.3, in the n ormal range. This represents a 4.1 percent increase from 2011. Bone mineral density measurements of the left hip correspond to a total T-score of -0.9. The femora l neck T-score is -1.9, in the osteopenic range. This represents a 2.8 percent increase from 2011.. The left forearm bone mineral density measurements correspond to a T-score of the distal 3rd of -0.5, in the normal range. This is not significantly changed from the prior exam. . IMPRESSION: Normal bone mineral density of the lumbar spine and left forearm. Osteopenia of the left hip.
--- NOTE | 2021-06-19 11:13 | DI.MAMMO_ITS ---
Exam(s) MAMMO SCREENING EXAM: MAMMO SCREENING CLINICAL HISTORY: SCREENING, Z12.31, FAMILY H/O BREAST CA, Z80.3 TECHNIQUE: Mammograms were interpreted according to the usual protocol including computer analysis w [employer] CAD system, tomosynthesis and C-view imaging. COMPARISON: 2011 through 2019 FINDINGS: The breasts are composed of mainly fatty density , Breast Density category A. No suspicious masses or suspicious microcalcifications are seen. No skin thickening or abnormal axillary lymph nodes are seen. There has been no significant change from prior exams. IMPRESSION: BI-RADS Category 1, Negative mammogram Yearly screening mammography is recommended. Breast Density - Category A, fatty density. A negative radiographic report should not delay biopsy if a dominant or clinically suspicious mass is present. Up to ten percent of cancers are not identified on mammography. A negative report may reinforce clinical impression. Adenosis and dense breasts may obscure an underlying neoplasm. False positive reports average 6 to 10%. Patient will receive a letter notifying them of these results.
== END 2021-06-19 01:35 ==
PROVIDERS: PCP Nurse Practitioner Family; Visit Provider Nurse Practitioner Family
DX: Z12.31 Encounter for screening mammogram for malignant neoplasm of breast (principal); Z80.3 Family history of malignant neoplasm of breast; M85.88 Other specified disorders of bone density and structure, other site
CPT/HCPCS: 77063; 77067; 77080

== ENCOUNTER 2022-06-07 10:51 | Outpatient (REF) | payer MEDICARE, SELFPAY ==
[2022-06-07 14:37] LABS: Anion Gap 6.5 mmol/L (3-11); BUN 24 mg/dL (7-18); CO2 30.5 mmol/L (21.0-32.0); CREATININE 0.9 mg/dL (0.55-1.02); Calcium 9.8 mg/dL (8.5-10.1); Chloride 102 mmol/L (98-107); Estimated GFR 66.26 (mL/min/1.73m2); Glucose 115 mg/dL (74-106); Potassium 3.8 mmol/L (3.5-5.1); Sodium 139 mmol/L (136-145)
== END 2022-06-07 10:52 | disposition home or self-care (01) ==
LOC: NCHCN 10:51
PROVIDERS: PCP Nurse Practitioner Family; Visit Provider Nurse Practitioner Family
DX: I10 Essential (primary) hypertension (principal); E78.5 Hyperlipidemia, unspecified
CPT/HCPCS: 80048

== ENCOUNTER 2022-06-22 02:29 | Outpatient (CLI) | payer MEDICARE, SELFPAY ==
--- NOTE | 2022-06-22 | DI.MAMMO_ITS ---
Exam(s) MAMMO SCREENING EXAM: MAMMO SCREENING CLINICAL HISTORY: SCREENING MAMMO Z12.31 FAM HX BREAST CANCER Z80.3. TECHNIQUE: Bilateral full field digital CC and MLO mammographic images were obtained with 3D tomosyn thesis and utilizing computer aided detection (CAD). COMPARISON: Prior mammograms were reviewed. FINDINGS: There has been no significant change in the appearance and distribution of the fibroglandular tissue. Right breast skin mole again noted. There are no new spiculated masses nor malignant appearing microcalcification groups. There is no significant architectural distortion nor skin thickening-retraction. IMPRESSION: No radiographic evidence of malignancy. BI-RADS Category 2 - Benign Findings Breast Density - Category A - Almost entirely fatty Breast density Category C or D implies that the patient has dense breast tissue. Dense breast tissue can make it harder to find cancer on a mammogram. Dense breast tissue is also associated with an incr eased risk of breast cancer. This information about the result of the mammogram report was provided to the patient to raise their awareness. Use this report when you speak with the patient about their risks for breast cancer, which includes their family history. At that time, you may recommend additional screening tests (Ultrasoun d or MRI) as these tests may add significant information. A negative radiographic report should not delay biopsy if a dominant or clinically suspicious mass is present. Up to ten percent of cancers are not identified on mammography. A negative report may reinforce clinical impression. Adenosis and dense breasts may obscure an underlying neoplasm. False positive reports average 6 to 10%. Patient will receive a letter notifying them of these results.
== END 2022-06-22 02:49 ==
LOC: DI 02:30
PROVIDERS: PCP Nurse Practitioner Family; Visit Provider Nurse Practitioner Family
DX: Z12.31 Encounter for screening mammogram for malignant neoplasm of breast (principal); Z80.3 Family history of malignant neoplasm of breast
CPT/HCPCS: 77063; 77067

== ENCOUNTER → 2023-05-13 10:21 | Outpatient (CLI) | payer MEDICARE, SELFPAY ==
--- NOTE | 2023-05-13 11:10 | DI.RAD_ITS ---
Exam(s) XR CHEST 2V PA LATERAL EXAM: XR CHEST 2V PA LATERAL CLINICAL HISTORY: WHEEZING R06.2 TECHNIQUE: 2D digital imaging was performed. COMPARISON: No exams were available for comparison FINDINGS: HEART: Normal size. Aorta: Not dilated. PULMONARY VASCULATURE: Normal. LUNGS: Clear. PLEURAL SPACE: No pleural effusion or pneumothorax. BONE:Unremarkable for age. Soft tissues: Unremarkable. IMPRESSION: No acute abnormality. DATA REPOSITORY: RADIATION DOSE DELIVERED:
== END ==
PROVIDERS: PCP Nurse Practitioner Family; Visit Provider Nurse Practitioner Family
DX: R06.2 Wheezing (principal)
CPT/HCPCS: 71046

== ENCOUNTER 2023-07-19 14:24 | Outpatient (REF) | payer MEDICARE, SELFPAY ==
[2023-07-19 22:08] LABS: Vitamin D 25 Total 32.8 ng/mL (30-100)
== END 2023-07-19 14:25 | disposition home or self-care (01) ==
LOC: NCHCN 14:24
PROVIDERS: PCP Nurse Practitioner Family; Visit Provider Nurse Practitioner Family
DX: M85.88 Other specified disorders of bone density and structure, other site (principal)
CPT/HCPCS: 82306

== ENCOUNTER 2024-04-03 16:15 | Outpatient (REF) | payer MEDICARE, SELFPAY ==
[2024-04-03 22:20] LABS: Anion Gap 9.1 mmol/L (3-11); BUN 23 mg/dL (7-18); CO2 31.9 mmol/L (21.0-32.0); CREATININE 1.1 mg/dL (0.55-1.02); Chloride 104 mmol/L (98-107); Estimated GFR 51.43 (mL/min/1.73m2); Glucose 107 mg/dL (74-106); Potassium 4.4 mmol/L (3.5-5.1); Sodium 145 mmol/L (136-145)
== END 2024-04-03 16:16 | disposition home or self-care (01) ==
LOC: NCHCN 16:15
PROVIDERS: PCP Nurse Practitioner Family; Visit Provider Nurse Practitioner Family
DX: I10 Essential (primary) hypertension (principal)
CPT/HCPCS: 80048

== ENCOUNTER 2024-10-04 10:05 | Outpatient (REF) | payer MEDICARE, SELFPAY ==
[2024-10-04 15:04] LABS: Anion Gap 6.4 mmol/L (3-11); BUN 21 mg/dL (7-18); CO2 31.6 mmol/L (21.0-32.0); CREATININE 1.1 mg/dL (0.55-1.02); Calcium 9.7 mg/dL (8.5-10.1); Chloride 106 mmol/L (98-107); Estimated GFR 51.43 (mL/min/1.73m2); Glucose 98 mg/dL (74-106); Sodium 144 mmol/L (136-145)
[2024-10-04 15:06] LABS: Bilirubin Negative (Negative); Blood Negative (Negative); Clarity Clear (Clear); Glucose Negative (Negative); Ketones Trace mg/dL (Negative); Leukocyte Esterase Small (Negative); Nitrite Negative (Negative); Urobilinogen 0.2 mg/dL (Up to 0.2)
[2024-10-04 15:16] LABS: Bacteria Many HPF (Negative); Casts Negative LPF (Negative); Crystals Negative HPF (Negative); Epithelial Cells Moderate HPF (Negative); Mucus Negative (Negative); RBC 0-2 HPF (0-2); WBC 20-50 HPF (0-5)
[2024-10-04 15:19] LABS: C & S Indicated? No/Sq. Contamination
[2024-10-04 15:30] LABS: COMMENT (LAB VIEW ONLY) 152.13 mg/dL; Microalb ug/mg Crea 12.9 ug/mg Cr
== END 2024-10-04 10:06 | disposition home or self-care (01) ==
LOC: NCHCN 10:05
PROVIDERS: PCP Nurse Practitioner Family; Visit Provider Nurse Practitioner Family
DX: I10 Essential (primary) hypertension (principal)
CPT/HCPCS: 80048; 81003; 81015; 82043; 82570

== ENCOUNTER 2025-04-09 14:23 | Outpatient (REF) | payer MEDICARE, SELFPAY ==
[2025-04-09 21:32] LABS: Anion Gap 7.4 mmol/L (3-11); BUN 23 mg/dL (9-23); CO2 28.6 mmol/L (20.0-31.0); Calcium 9.5 mg/dL (8.3-10.6); Chloride 105 mmol/L (98-107); Glucose 89 mg/dL (74-106); Potassium 4.0 mmol/L (3.5-5.1); Sodium 141 mmol/L (136-145)
== END 2025-04-09 14:24 | disposition home or self-care (01) ==
LOC: NCHCN 14:23
PROVIDERS: PCP Nurse Practitioner Family; Visit Provider Nurse Practitioner Family
DX: N18.32 Chronic kidney disease, stage 3b (principal)
CPT/HCPCS: 80048